=== PATIENT | male | born 1990 | race Two or more races ===

== ENCOUNTER → 2016-05-31 | Emergency (ER) | payer OTHER ==
[~2016-05-31] VITALS: Ht 170.2 cm; Wt 76.7 kg
[~2016-05-31] MED LIST: IBUPROFEN 600 MG TABLET PO ONE
[2016-05-31 16:29] VITALS: BP 139/76
== END | disposition home or self-care (01) ==
LOC: ER 16:13
DX: M25.571 Pain in right ankle and joints of right foot (principal); W22.8XXA Striking against or struck by other objects, initial encounter; Y93.89 Activity, other specified; Y92.89 Other specified places as the place of occurrence of the external cause; Y99.8 Other external cause status
CPT/HCPCS: 99283; A4606; Z7610

== ENCOUNTER 2016-07-13 01:54 | Emergency (ER) | payer OTHER ==
[~2016-07-13] VITALS: Ht 170.2 cm; Wt 76.7 kg
[2016-07-13 02:15] VITALS: BP 143/76
[2016-07-13] MEDS ORDERED: HYDROCODONE/APAP 5/325MG 1 EACH TABLET ONE (02:26)
[2016-07-13] MEDS ORDERED: TDAP [DIPH/PERTUSSIS/TET] 0.5 ML VIAL IM ONE ×2 (02:27→02:30)
[2016-07-13] MEDS ORDERED: PENICILLIN V POTASSIUM 500 MG TABLET PO ONE ×2 (02:30→02:42)
[2016-07-13] MEDS ORDERED: LIDOCAINE 1%-EPI 1:100,000 20 ML VIAL TP ONE (02:30)
[2016-07-13] MEDS ORDERED: SODIUM BICARBONATE 5 ML VIAL TP ONE (02:30)
[2016-07-13] MEDS ORDERED: HYDROCODONE/APAP 5/325MG 1 EACH TABLET PO ONE (02:30)
== END 2016-07-13 02:54 | disposition home or self-care (01) ==
LOC: ER 01:57
DX: S01.511A Laceration without foreign body of lip, initial encounter (principal); Y04.0XXA Assault by unarmed brawl or fight, initial encounter; Y93.89 Activity, other specified; Y92.89 Other specified places as the place of occurrence of the external cause; Y99.8 Other external cause status
CPT/HCPCS: 12011; 90471; 90715; 99283; A4606; A6403; Z7610

== ENCOUNTER 2016-07-17 20:54 | Emergency (ER) | payer OTHER ==
[~2016-07-17] VITALS: Ht 170.2 cm; Wt 76.7 kg
[2016-07-17 21:23] VITALS: BP 128/87
== END 2016-07-17 22:07 | disposition home or self-care (01) ==
LOC: ER 20:58
DX: T81.30XA Disruption of wound, unspecified, initial encounter (principal); L01.00 Impetigo, unspecified; X58.XXXA Exposure to other specified factors, initial encounter; Y93.89 Activity, other specified; Y92.89 Other specified places as the place of occurrence of the external cause; Y99.9 Unspecified external cause status
CPT/HCPCS: A4606; Z7610

== ENCOUNTER 2017-08-21 19:26 | Emergency (ER) | payer OTHER ==
[~2017-08-21] VITALS: Ht 170.2 cm; Wt 75.7 kg
[2017-08-21 19:43] VITALS: BP 130/62
--- NOTE | 2017-08-21 19:43 | NUR ---
PT AMBULATORY TO ER BED 14. BIB SELF C/O ABD PAIN WITH NAUSEA X 4 DAYS. DENIES VOMITING. PT PLACED IN GOWN AND ON [employer]. VSS/RESP EVEN UNLABORED/NAD NOTED/SKIN WARM AND DRY/DENIES N-V-D/AFEBRILE/AOX4. AWAITING MD SALAZAR.
--- NOTE | 2017-08-21 20:19 | NUR ---
URINE SPECIMEN OBTAINED AND SENT TO THE LAB.
--- NOTE | 2017-08-21 20:22 | NUR ---
LAB AT BEDSIDE TO DRAW.
[2017-08-21 20:26] LABS: APPEARANCE,URINE Clear (CLEAR); BILIRUBIN,URINE Negative (NEGATIVE); BLOOD, URINE Trace-intact Ery/uL (NEGATIVE); COLOR,URINE Yellow (YELLOW); KETONES,URINE Negative (NEGATIVE); LEUKOCYTE ESTERASE ,URINE Negative (NEGATIVE); NITRITE, URINE Negative (NEGATIVE); PROTEIN,URINE Negative (NEGATIVE); UGLUCOSE Negative (NEGATIVE); UROBILINOGEN,URINE 0.2 EU/dL (0.2)
[2017-08-21 20:27] LABS: BASOPHILS % (AUTO) 0.6 % (0.0-2.0); EOSINOPHILS % (AUTO) 1.7 % (0.0-6.0); HEMATOCRIT 40 % (39-51); HEMOGLOBIN 13.9 g/dL (13.5-17.5); LYMPHOCYTES # (AUTO) 1.8 /CMM (0.8-4.8); LYMPHOCYTES % (AUTO) 34.7 % (20.0-44.0); MEAN CORPUSCULAR HGB CONC 35 g/dl (31.0-36.0); MEAN CORPUSCULAR VOLUME 84 fL (80-96); MONOCYTES # (AUTO) 0.5 /CMM (0.1-1.30); MONOCYTES % (AUTO) 8.6 % (2.0-12.0); NEUTROPHILS # (AUTO) 2.9 /CMM (1.8-8.9); NEUTROPHILS % (AUTO) 54.4 % (43.0-81.0); PLATELET COUNT (AUTO) 335 /CMM (150-450); RDW COEFFICIENT OF VARIATION 12.4 (11.5-15.0); RED BLOOD CELL COUNT(AUTO) 4.76 MIL/uL (4.5-6.0); WHITE BLOOD COUNT (AUTO) 5.3 K/uL (4.3-11.0)
[2017-08-21] MEDS ORDERED: ONDANSETRON 4 MG TAB.RAPDIS SL ONE (20:30)
[2017-08-21] MEDS ORDERED: ONDANSETRON HCL 4 MG/5 ML SOLUTION PO ONE (20:30)
--- NOTE | 2017-08-21 20:35 | NUR ---
PT MARTINE, STATED HE DOESN'T WANT ANY TESTS DONE AND ONLY WANTED A PRESCRIPTION FOR PAIN. MADE AWARE.
[2017-08-21 20:56] LABS: ALBUMIN 3.7 g/dL (3.4-5.0); BILIRUBIN,TOTAL 0.1 mg/dL (0.2-1.0); CALCIUM, SERUM 8.4 mg/dL (8.5-10.1); POTASSIUM 4.8 mmol/L (3.5-5.1); TOTAL PROTEIN, SERUM 8.2 g/dL (6.4-8.2)
[2017-08-21 21:05] LABS: BACTERIA,URINE Rare /HPF (None Seen); RBC,URINE 0-2 /HPF (0-2); SQUAMOUS EPITHELIAL CELL,UR Rare /HPF (None Seen); URIC ACID CRYSTALS,URINE Moderate /HPF (None Seen); WBC,URINE 0-2 /HPF (0-3)
== END 2017-08-21 20:39 | disposition home or self-care (01) ==
LOC: ER 19:29
DX: R10.13 Epigastric pain (principal); Z53.20 Procedure and treatment not carried out because of patient's decision for unspecified reasons; Z60.2 Problems related to living alone
CPT/HCPCS: 36415; 80048-TC; 80076-TC; 81000-TC; 83690-TC; 85025-TC; A4606; Z7610

== ENCOUNTER 2018-07-11 20:44 | Emergency (ER) | payer OTHER ==
[~2018-07-11] VITALS: Ht 172.7 cm; Wt 77.1 kg
[2018-07-11 20:44] VITALS: BP 133/84
[2018-07-11] MEDS ORDERED: IBUPROFEN 400 MG TABLET ONE (21:14)
[2018-07-11] MEDS ORDERED: IBUPROFEN 400 MG TABLET PO ONE (21:30)
== END 2018-07-11 21:47 | disposition home or self-care (01) ==
LOC: ER 20:48
DX: S93.491A Sprain of other ligament of right ankle, initial encounter (principal); J03.80 Acute tonsillitis due to other specified organisms; B96.89 Other specified bacterial agents as the cause of diseases classified elsewhere; Z60.2 Problems related to living alone; X58.XXXA Exposure to other specified factors, initial encounter; Y93.89 Activity, other specified; Y92.89 Other specified places as the place of occurrence of the external cause; Y99.8 Other external cause status

== ENCOUNTER 2018-11-03 17:58 | Emergency (ER) | payer OTHER ==
[~2018-11-03] VITALS: Ht 172.7 cm; Wt 76.2 kg
[2018-11-03 18:23] VITALS: BP 136/77
== END 2018-11-03 18:49 | disposition home or self-care (01) ==
LOC: ER 17:58
DX: J03.90 Acute tonsillitis, unspecified (principal); R11.10 Vomiting, unspecified; Z60.2 Problems related to living alone

== ENCOUNTER 2019-05-15 19:46 | Emergency (ER) | payer OTHER ==
--- NOTE | 2019-05-15 19:55 | NUR ---
CALLED FOR TRIAGE, NO ANSWER.
--- NOTE | 2019-05-15 20:00 | NUR ---
CALLED FOR TRIAGE, NO ANSWER.
--- NOTE | 2019-05-15 20:05 | NUR ---
CALLED FOR TRIAGE, NO ANSWER.
--- NOTE | 2019-05-15 20:43 | NUR ---
CALLED FOR TRIAGE, NO ANSWER.
== END 2019-05-15 20:44 | disposition left against medical advice (07) ==
LOC: ER 19:47
DX: Z53.21 Procedure and treatment not carried out due to patient leaving prior to being seen by health care provider (principal)

== ENCOUNTER 2019-12-10 19:14 | Emergency (ER) | payer OTHER ==
[~2019-12-10] VITALS: Ht 172.7 cm; Wt 86.2 kg
[2019-12-10 19:15] VITALS: BP 111/92
[2019-12-10] MEDS ORDERED: AMOXICILLIN TRIHYDRATE 250 MG CAPSULE ONE (19:55)
[2019-12-10] MEDS ORDERED: AMOXICILLIN TRIHYDRATE 500 MG CAPSULE PO ONE (20:00)
--- NOTE | 2019-12-10 20:00 | NUR ---
THROAT CULTURE COLLECTED AND SENT TO LAB
== END 2019-12-10 20:05 | disposition home or self-care (01) ==
LOC: ER 19:17
DX: J02.0 Streptococcal pharyngitis (principal); Z60.2 Problems related to living alone
CPT/HCPCS: 87070-TC

== ENCOUNTER 2020-01-10 19:12 | Emergency (ER) | payer OTHER ==
[~2020-01-10] VITALS: Ht 172.7 cm; Wt 81.6 kg
[2020-01-10] MEDS ORDERED: METOCLOPRAMIDE HCL 10 MG/2 ML VIAL IV ONE (19:30)
[2020-01-10] MEDS ORDERED: IV NS 0.9% 250 ML BAG IV ONE (19:30)
[2020-01-10] MEDS ORDERED: IV NS 0.9% 1,000 ML BAG IV ONE (19:30)
[2020-01-10] MEDS ORDERED: diphenhydrAMINE HCL 50 MG/ML VIAL IV ONE (19:30)
--- NOTE | 2020-01-10 19:36 | NUR ---
BIBS FROM HOME TO ER BED 6. AAOX4. NOT IN RESP DISTRESS. AMBULATORY. CAME IN FOR FEVER, SORE THROAT AND HEADACHE FOR THE PAST 4 DAYS. MD WAS AT THE BEDSIDE FUNMI SALAZAR. ORDERS RECEIVED NOTED AND CARRIED OUT. IV LINE ESTABLISHED ON R AC 18G. BLOOD DRAWN AND SENT TO LAB
[2020-01-10] MEDS ORDERED: diphenhydrAMINE HCL 50 MG/ML VIAL ONE (19:38)
[2020-01-10] MEDS ORDERED: METOCLOPRAMIDE HCL 10 MG/2 ML VIAL ONE (19:38)
[2020-01-10 20:15] LABS: MONOTEST NEGATIVE (NEGATIVE)
[2020-01-10 20:23] LABS: ALBUMIN 3.5 g/dL (3.4-5.0); BILIRUBIN,DIRECT 0.1 mg/dL (0.0-0.2); BILIRUBIN,TOTAL 0.3 mg/dL (0.2-1.0); CALCIUM, SERUM 8.9 mg/dL (8.5-10.1); CREATININE 1.1 mg/dL (0.6-1.3); POTASSIUM 3.7 mmol/L (3.5-5.1); TOTAL PROTEIN, SERUM 7.7 g/dL (6.4-8.2)
[2020-01-10 20:36] LABS: BASOPHILS % (AUTO) 0.8 % (0.0-2.0); EOSINOPHILS % (AUTO) 0.1 % (0.0-6.0); HEMATOCRIT 44 % (39-51); LYMPHOCYTES # (AUTO) 0.9 /CMM (0.8-4.8); LYMPHOCYTES % (AUTO) 25.8 % (20.0-44.0); MEAN CORPUSCULAR HGB CONC 34 g/dl (31.0-36.0); MEAN CORPUSCULAR VOLUME 87 fL (80-96); MONOCYTES # (AUTO) 0.3 /CMM (0.1-1.30); MONOCYTES % (AUTO) 9.6 % (2.0-12.0); NEUTROPHILS # (AUTO) 2.2 /CMM (1.8-8.9); NEUTROPHILS % (AUTO) 63.7 % (43.0-81.0); PLATELET COUNT (AUTO) 175 /CMM (150-450); RED BLOOD CELL COUNT(AUTO) 5.07 MIL/uL (4.5-6.0); WHITE BLOOD COUNT (AUTO) 3.4 K/uL (4.3-11.0)
--- NOTE | 2020-01-10 21:12 | NUR ---
Patient discharged to home in stable condition. Written and verbal after care instructions given. Patient verbalizes understanding of instruction.IV removed. Catheter intact and site benign. Pressure and 4x4 applied to site. No bleeding noted. Pt ambulatory with a steady gait
[2020-01-10 21:23] VITALS: BP 120/72
== END 2020-01-10 21:15 | disposition home or self-care (01) ==
LOC: ER 19:19
DX: B34.9 Viral infection, unspecified (principal); Z20.828 Contact with and (suspected) exposure to other viral communicable diseases; R50.9 Fever, unspecified; R51.9 Headache, unspecified
CPT/HCPCS: 36415; 80048; 80076; 85025; 86308; 87804; 96361; 96374; 96375; 99284; C9803; J1200; J2765; J7030 ×3; J7050; U0003

== ENCOUNTER 2020-01-29 21:41 | Emergency (ER) | payer OTHER ==
[~2020-01-29] VITALS: Ht 172.7 cm; Wt 86.2 kg
--- NOTE | 2020-01-29 21:43 | NUR ---
BIBS FOR C/O MID STERNAL PRESSURE CP 8/10,RADIATING TO THE BACK SINCE AM ADMITTED ON DRINKING ALCOHOL 48HRS AGO; PT AAOX4, -SOB, NAD NOTED, VSS PENDING ER PROVIDER MARTIN
[2020-01-29 22:31] LABS: BASOPHILS % (AUTO) 0.4 % (0.0-2.0); EOSINOPHILS % (AUTO) 1.3 % (0.0-6.0); HEMATOCRIT 39 % (39-51); HEMOGLOBIN 12.8 g/dL (13.5-17.5); LYMPHOCYTES # (AUTO) 1.7 /CMM (0.8-4.8); LYMPHOCYTES % (AUTO) 17.2 % (20.0-44.0); MEAN CORPUSCULAR HGB CONC 33 g/dl (31.0-36.0); MEAN CORPUSCULAR VOLUME 89 fL (80-96); MONOCYTES # (AUTO) 1.2 /CMM (0.1-1.30); MONOCYTES % (AUTO) 12.1 % (2.0-12.0); NEUTROPHILS # (AUTO) 6.8 /CMM (1.8-8.9); PLATELET COUNT (AUTO) 265 /CMM (150-450); RED BLOOD CELL COUNT(AUTO) 4.31 MIL/uL (4.5-6.0); WHITE BLOOD COUNT (AUTO) 9.8 K/uL (4.3-11.0)
[2020-01-29] MEDS ORDERED: LORAZEPAM 1 MG TABLET ONE (22:36)
[2020-01-29] MEDS: LORAZEPAM 1 MG TABLET PO ONE (22:38)
[2020-01-29 22:41] LABS: CALCIUM, SERUM 8.2 mg/dL (8.5-10.1); CARBON DIOXIDE 31 mmol/L (21-32); CHLORIDE 105 mmol/L (98-107); GLUCOSE 89 mg/dL (74-106); POTASSIUM 4.5 mmol/L (3.5-5.1); SODIUM SERUM 137 mmol/L (136-145); UREA NITROGEN, BLOOD 21 mg/dL (7-18)
[2020-01-29 22:47] LABS: ALANINE AMINOTRANSFERASE 35 U/L (12-78); ALKALINE PHOSPHATASE 69 U/L (46-116); ASPARTATE AMINOTRANSFERASE 19 U/L (15-37); BILIRUBIN,DIRECT 0.1 mg/dL (0.0-0.2); BILIRUBIN,TOTAL 0.3 mg/dL (0.2-1.0); TOTAL PROTEIN, SERUM 6.7 g/dL (6.4-8.2)
--- NOTE | 2020-01-30 00:34 | NUR ---
Patient discharged to home in stable condition. Written and verbal after care instructions given. Patient verbalizes understanding of instruction.
[2020-01-30 00:40] VITALS: BP 139/73
== END 2020-01-30 00:34 | disposition home or self-care (01) ==
LOC: ER 21:42
DX: R07.89 Other chest pain (principal); Z60.2 Problems related to living alone; Z87.891 Personal history of nicotine dependence
CPT/HCPCS: 36415; 71045-TC; 80048-TC; 80076-TC; 84484-TC; 85025-TC

== ENCOUNTER 2020-07-21 18:14 | Emergency (ER) | payer OTHER ==
[~2020-07-21] VITALS: Ht 172.7 cm; Wt 90.7 kg
[2020-07-21 18:23] VITALS: BP 140/79
--- NOTE | 2020-07-21 18:33 | NUR ---
TO ER BED 8 AWAITING MD SALAZAR
[2020-07-21] MEDS ORDERED: AMOX500C2 PO (19:38)
[2020-07-21] MEDS ORDERED: AMOXICILLIN TRIHYDRATE 250 MG CAPSULE ONE (19:43)
[2020-07-21] MEDS ORDERED: AMOXICILLIN TRIHYDRATE 500 MG CAPSULE PO ONE (20:00)
== END 2020-07-21 19:52 | disposition home or self-care (01) ==
LOC: ER 18:17
DX: J03.90 Acute tonsillitis, unspecified (principal); R59.0 Localized enlarged lymph nodes; Z87.891 Personal history of nicotine dependence

== ENCOUNTER 2021-06-06 14:49 | Emergency (ER) | payer OTHER ==
[~2021-06-06] VITALS: Ht 175.3 cm; Wt 93.0 kg
[~2021-06-06 14:49] MED LIST changes: +AMOX500C2 PO; -IBUPROFEN 600 MG TABLET PO ONE
[2021-06-06 15:57] VITALS: BP 132/77
--- NOTE | 2021-06-06 16:27 | NUR ---
PT WAS TRIAGED BUT WAS NOT SEEN BY ERMD/PROVIDER.
== END 2021-06-06 16:50 | disposition left against medical advice (07) ==
LOC: ER 15:30
DX: Z53.21 Procedure and treatment not carried out due to patient leaving prior to being seen by health care provider (principal); K13.79 Other lesions of oral mucosa; J02.9 Acute pharyngitis, unspecified

== ENCOUNTER 2021-10-24 20:10 | Emergency (ER) | payer OTHER ==
[~2021-10-24] VITALS: Ht 170.2 cm; Wt 81.6 kg
[2021-10-24 21:14] VITALS: BP 132/80
[2021-10-24] MEDS ORDERED: KETOROLAC TROMETHAMINE INJ 30 MG/ML VIAL ONE (21:28)
[2021-10-24] MEDS ORDERED: KETOROLAC TROMETHAMINE INJ 60 MG/2 ML VIAL IM ONE (21:30)
[2021-10-24] MEDS ORDERED: AMOX500C2 PO (21:34)
--- NOTE | 2021-10-24 21:47 | NUR ---
strp swab done and sent to lab
--- NOTE | 2021-10-24 21:47 | NUR ---
Patient discharged to home in stable condition. Written and verbal after care instructions given. Patient verbalizes understanding of instruction. Pt ambulatory with a steady gait
== END 2021-10-24 21:48 | disposition home or self-care (01) ==
LOC: ER 20:20
DX: J35.8 Other chronic diseases of tonsils and adenoids (principal); Z87.891 Personal history of nicotine dependence
CPT/HCPCS: 99283; 96372; 87070; 87880; J1885; 86403-TC

== ENCOUNTER 2022-06-20 15:22 | Emergency (ER) | payer OTHER ==
[~2022-06-20] VITALS: Ht 172.7 cm; Wt 90.7 kg
[2022-06-20 15:49] VITALS: BP 125/70
--- NOTE | 2022-06-20 15:52 | NUR ---
pt on bed, waiting to be seen by
--- NOTE | 2022-06-20 15:55 | NUR ---
sore throat x 4 days requesting oral antibiotics
[2022-06-20] MEDS ORDERED: IBUPROFEN 600 MG TABLET PO ONE (16:00)
[2022-06-20] MEDS ORDERED: AMOXICILLIN TRIHYDRATE 500 MG CAPSULE PO ONE (16:00)
--- NOTE | 2022-06-20 16:00 | NUR ---
medicated as order
[2022-06-20] MEDS ORDERED: AMOX500C2 PO ×2 (16:02→16:07)
[2022-06-20] MEDS ORDERED: AMOXICILLIN TRIHYDRATE 250 MG CAPSULE ONE (16:05)
[2022-06-20] MEDS ORDERED: IBUPROFEN 600 MG TABLET ONE (16:05)
--- NOTE | 2022-06-20 16:14 | NUR ---
Patient discharged to home in stable condition. Written and verbal after care instructions given. Patient verbalizes understanding of instruction.
--- NOTE | 2022-06-20 16:14 | NUR ---
Patient discharged to home in stable condition. Written and verbal after care instructions given. Patient verbalizes understanding of instruction.
== END 2022-06-20 16:14 | disposition home or self-care (01) ==
LOC: ER 15:31
DX: J02.0 Streptococcal pharyngitis (principal); Z79.899 Other long term (current) drug therapy

== ENCOUNTER 2022-11-25 17:34 | Emergency (ER) | payer OTHER ==
[~2022-11-25] VITALS: Ht 172.7 cm; Wt 86.2 kg
[~2022-11-25 17:34] MED LIST changes: +AMOX500T2 PO
[2022-11-25 18:13] VITALS: BP 137/85; TEMP 98
[2022-11-25] MEDS ORDERED: KETOROLAC TROMETHAMINE INJ 30 MG/ML VIAL ONE (18:16)
[2022-11-25] MEDS ORDERED: KETOROLAC TROMETHAMINE INJ 60 MG/2 ML VIAL IM ONE (18:30)
[2022-11-25] MEDS ORDERED: AMOX500C2 PO (19:12)
[2022-11-25 19:23] VITALS: O2SAT 100
== END 2022-11-25 19:25 | disposition home or self-care (01) ==
LOC: ER 17:34
DX: J02.9 Acute pharyngitis, unspecified (principal); R22.9 Localized swelling, mass and lump, unspecified; Z79.899 Other long term (current) drug therapy; Z20.822 Contact with and (suspected) exposure to COVID-19
CPT/HCPCS: 99283; 87426; 87880; C9803; 86403-TC; J1885; J7030

== ENCOUNTER 2023-02-21 14:40 | Emergency (ER) | payer OTHER ==
[~2023-02-21] VITALS: Ht 172.7 cm; Wt 86.2 kg
[2023-02-21 15:01] VITALS: BP 128/72; TEMP 98.1; O2SAT 99
[2023-02-21] MEDS ORDERED: AMOX-430 PO (15:31)
== END 2023-02-21 15:42 | disposition home or self-care (01) ==
LOC: ER 14:40
DX: S81.852A Open bite, left lower leg, initial encounter (principal); W54.0XXA Bitten by dog, initial encounter; Y93.89 Activity, other specified; Y92.89 Other specified places as the place of occurrence of the external cause; Y99.8 Other external cause status

== ENCOUNTER 2023-10-02 17:42 | Emergency (ER) | payer OTHER ==
[~2023-10-02] VITALS: Ht 172.7 cm; Wt 93.0 kg
[~2023-10-02 17:42] MED LIST changes: +AMOX-430 PO
[2023-10-02] MEDS ORDERED: IBUP-1957 PO ×2 (20:59→23:47)
[2023-10-02] MEDS ORDERED: CEPH500T PO (20:59)
[2023-10-02] MEDS ORDERED: IBUPROFEN 600 MG TABLET ONE (21:24)
[2023-10-02] MEDS: IBUPROFEN 600 MG TABLET PO ONE (21:26)
[2023-10-02 22:17] VITALS: BP 150/90; TEMP 98.1; O2SAT 99
[2023-10-02] MEDS ORDERED: CEPH500C2 PO (23:47)
== END 2023-10-02 22:18 | disposition home or self-care (01) ==
LOC: ER 18:08
DX: S02.5XXA Fracture of tooth (traumatic), initial encounter for closed fracture (principal); X58.XXXA Exposure to other specified factors, initial encounter; Y93.89 Activity, other specified; Y92.89 Other specified places as the place of occurrence of the external cause; Y99.8 Other external cause status

== ENCOUNTER 2023-11-21 16:32 | Emergency (ER) | payer OTHER ==
[~2023-11-21] VITALS: Ht 172.7 cm; Wt 90.7 kg
[~2023-11-21 16:32] MED LIST changes: +CEPH500C2 PO; +CEPH500T PO; +IBUP-1957 PO
[2023-11-21] MEDS ORDERED: AMOX-430 PO (17:53)
[2023-11-21] MEDS ORDERED: IBUP-1957 PO (17:53)
--- NOTE | 2023-11-21 18:09 | NUR ---
Patient discharged to home in stable condition. Written and verbal after care instructions given. Patient verbalizes understanding of instruction.
[2023-11-21 18:10] VITALS: BP 128/75; TEMP 98.2; O2SAT 100
== END 2023-11-21 18:25 | disposition home or self-care (01) ==
LOC: ER 16:34
DX: S01.81XA Laceration without foreign body of other part of head, initial encounter (principal); K04.7 Periapical abscess without sinus; Z79.1 Long term (current) use of non-steroidal anti-inflammatories (NSAID); Z79.899 Other long term (current) drug therapy; W45.8XXA Other foreign body or object entering through skin, initial encounter; Y93.89 Activity, other specified; Y92.89 Other specified places as the place of occurrence of the external cause; Y99.8 Other external cause status

== ENCOUNTER 2024-01-02 19:33 | Emergency (ER) | payer OTHER ==
[~2024-01-02] VITALS: Ht 177.8 cm; Wt 85.7 kg
[2024-01-02 20:13] VITALS: BP 136/76; TEMP 99.1; O2SAT 99
[2024-01-02] MEDS ORDERED: AMOXICILLIN TRIHYDRATE 250 MG CAPSULE ONE (20:31)
[2024-01-02] MEDS ORDERED: IBUPROFEN 600 MG TABLET ONE (20:32)
[2024-01-02] MEDS: AMOXICILLIN TRIHYDRATE 500 MG CAPSULE PO ONE (20:35)
[2024-01-02] MEDS: IBUPROFEN 600 MG TABLET PO ONE (20:35)
== END 2024-01-02 20:35 | disposition home or self-care (01) ==
LOC: ER 19:45
DX: K04.7 Periapical abscess without sinus (principal); Z79.1 Long term (current) use of non-steroidal anti-inflammatories (NSAID); Z87.891 Personal history of nicotine dependence

== ENCOUNTER 2024-03-20 12:13 | Emergency (ER) | payer OTHER ==
[~2024-03-20] VITALS: Ht 177.8 cm; Wt 90.7 kg
[2024-03-20 12:43] VITALS: BP 138/77; TEMP 98.8; O2SAT 99
[2024-03-20] MEDS ORDERED: BUPIVACAINE 0.5 % PF 150 MG/30 ML VIAL ONE (13:04)
[2024-03-20] MEDS ORDERED: IBUP-1955 PO (13:20)
[2024-03-20] MEDS ORDERED: AMOX-430 PO (13:20)
[2024-03-20] MEDS ORDERED: IBUPROFEN 400 MG TABLET ONE (13:29)
[2024-03-20] MEDS: IBUPROFEN 600 MG TABLET PO ONE (13:34)
[2024-03-20] MEDS: BUPIVACAINE 0.25% 75 MG/30 ML VIAL IJ ONE (13:34)
== END 2024-03-20 13:35 | disposition home or self-care (01) ==
LOC: ER 12:18
DX: K04.7 Periapical abscess without sinus (principal); Z79.1 Long term (current) use of non-steroidal anti-inflammatories (NSAID); Z87.891 Personal history of nicotine dependence; Z60.2 Problems related to living alone
CPT/HCPCS: 99282; J3490

== ENCOUNTER 2024-04-05 17:21 | Emergency (ER) | payer OTHER ==
[~2024-04-05] VITALS: Ht 167.6 cm; Wt 90.7 kg
[~2024-04-05 17:21] MED LIST changes: +IBUP-1955 PO
[2024-04-05 17:41] VITALS: BP 138/83; TEMP 98.4; O2SAT 96
[2024-04-05] MEDS ORDERED: AMOX-430 PO (17:57)
== END 2024-04-05 18:26 | disposition home or self-care (01) ==
LOC: ER 17:22
DX: S02.5XXA Fracture of tooth (traumatic), initial encounter for closed fracture (principal); K04.7 Periapical abscess without sinus; F17.200 Nicotine dependence, unspecified, uncomplicated; Z79.1 Long term (current) use of non-steroidal anti-inflammatories (NSAID); X58.XXXA Exposure to other specified factors, initial encounter; Y93.89 Activity, other specified; Y92.89 Other specified places as the place of occurrence of the external cause; Y99.8 Other external cause status

== ENCOUNTER 2024-05-14 15:27 | Emergency (ER) | payer OTHER ==
[~2024-05-14] VITALS: Ht 175.3 cm; Wt 90.7 kg
[2024-05-14] MEDS ORDERED: AMOX500C2 PO (16:23)
[2024-05-14] MEDS ORDERED: IBUPROFEN 600 MG TABLET ONE (16:33)
[2024-05-14] MEDS: IBUPROFEN 600 MG TABLET PO ONE (16:37)
[2024-05-14 16:46] VITALS: BP 126/92; TEMP 98.6; O2SAT 95
== END 2024-05-14 16:47 | disposition home or self-care (01) ==
LOC: ER 15:29
DX: J35.1 Hypertrophy of tonsils (principal); Z79.1 Long term (current) use of non-steroidal anti-inflammatories (NSAID); Z87.891 Personal history of nicotine dependence; Z20.822 Contact with and (suspected) exposure to COVID-19
CPT/HCPCS: 86403-TC; 87070-TC

== ENCOUNTER 2024-10-01 15:17 | Emergency (ER) | payer OTHER ==
[~2024-10-01] VITALS: Ht 175.3 cm; Wt 90.7 kg
[2024-10-01 16:04] VITALS: BP 131/78; TEMP 97.9
[2024-10-01] MEDS ORDERED: IBUP-1490 PO (16:13)
[2024-10-01] MEDS ORDERED: AMOX-430 PO (16:13)
[2024-10-01] MEDS ORDERED: HYDR-3972 PO (16:13)
[2024-10-01 16:33] VITALS: O2SAT 98
== END 2024-10-01 16:34 | disposition home or self-care (01) ==
LOC: ER 15:17
DX: K04.7 Periapical abscess without sinus (principal); Z79.1 Long term (current) use of non-steroidal anti-inflammatories (NSAID); Z87.891 Personal history of nicotine dependence